=== PATIENT | female | born 1945 | race Caucasian/White ===

== ENCOUNTER 2018-12-12 14:33 | Outpatient (CLI) | payer MEDICARE ==
[~2018-12-12 14:33] MED LIST: None per pt.; OXYC-302 PO; Percogesic PO; [UNRECOGNIZED DRUG - OTHER] PO
== END 2018-12-12 23:59 | disposition home or self-care (01) ==
LOC: CFH 14:33
PROVIDERS: ATTEND Internal Medicine
DX: M48.061 Spinal stenosis, lumbar region without neurogenic claudication (principal); M43.26 Fusion of spine, lumbar region; M43.16 Spondylolisthesis, lumbar region; Z98.890 Other specified postprocedural states
CPT/HCPCS: 72148